=== PATIENT | female | born 1945 | race Caucasian/White ===

== ENCOUNTER 2017-06-12 18:41 | Observation (INO) | payer MEDICARE ==
[~2017-06-12] VITALS: Ht 152.4 cm; Wt 66.2 kg
--- NOTE | ~2017-06-12 | EKG ---
PATIENT: ANKUSH ARTIS UNIT #: [id number] Ventricular Rate: 51 BPM Atrial Rate: 68 BPM QRS Duration: 74 ms Q-T Interval: 488 ms QTC Calculation(Bezet): 449 ms Calculated R [place]: 11 degrees Calculated T [place]: 97 degrees Diagnosis Line: Sinus rhythm with 2nd degree A-V block (Mobitz I) Diagnosis Line: Septal infarct , age undetermined Diagnosis Line: Abnormal ECG Diagnosis Line: When compared with ECG of 12-JUN-2017 19:08, Diagnosis Line: (unconfirmed) Diagnosis Line: Septal infarct is now Present Diagnosis Line: Confirmed by FIORELLA GRAY MD ([id number]) on Diagnosis Line: 06/13/2017 10:58:57 AM INTERPRETING MD: ISAAC DORMAN
--- NOTE | ~2017-06-12 | HP ---
Unit #: [id number] #: [id number] Patient: ANKUSH ARTIS [id number] [address] [place], [place] [address] [id number] I MR#: [id number] NAME: ANKUSH ARTIS. ROOM: 551 Age: 72 Sex: F Admission Date: 06/12/2017 : 1945 Attending Physician: Therese Crocker M.D. Primary Care Physician: Sussy Funes M.D. HISTORY AND PHYSICAL CHIEF COMPLAINT Symptomatic type one second degree AV block. HISTORY OF PRESENT ILLNESS This pleasant, 72-year-old female with COPD, hypertension, was transferred from [facility] emergency department for near syncope and Wenckebach. The patient states that she was in her usual state of health until 5 p.m. last evening. She was walking in her kitchen, felt extremely lightheaded, had to be helped to the ground, became diaphoretic and experienced nausea and vomiting. No chest pain or shortness of breath with the above. When she went to [facility] emergency department, initially, she was thought to have vertigo. However, the patient tells me currently that she did not experience spinning, that she felt definitely lightheaded as if she was going to faint. In the course of her workup, she was found to have a Wenckebach block. Potassium was low at 3.2. She was treated with a dose of Antivert, Zofran, 10 mg of IV hydralazine for an elevated blood pressure, given 40 mEq of potassium. Currently, she is feeling improved. On her monitor, she continues to be in a type one second degree AV block rhythm. She states that she saw Dr. Santo in the past for irregular heart rhythm but no other details are available. The patient does note episodes of chest discomfort which can occur at rest or with exertion. First set of cardiac enzymes are negative. PAST MEDICAL HISTORY 1. COPD. 2. Irregular heart rhythm in the past seen by Dr. Santo. 3. Hypertension. 4. Hyperlipidemia. 5. Cholecystectomy. 6. One functioning kidney. 7. Total abdominal hysterectomy. 8. Exploratory laparotomy. SOCIAL HISTORY The patient lives with her and dog, Sugar. She smokes one-half pack per day of tobacco. She does not want to stop smoking. She drinks an occasional glass of wine. FAMILY HISTORY Positive for CAD in her father in his sixties. ALLERGIES Aspirin and Stadol. Unit #: [id number] #: [id number] Patient: ANKUSH ARTIS HOME MEDICATIONS 1. Possibly Premarin. 2. ProAir as needed. 3. Norvasc 5 mg daily. 4. PRN Fioricet. 5. Lozol. 6. HCTZ. REVIEW OF SYSTEMS Notable for lightheadedness, nausea, diaphoresis, irregular heart rhythm, COPD, tobacco use, hypertension, hyperlipidemia, above-mentioned surgeries. Occasional chest pain. All other systems were reviewed and are negative. PHYSICAL EXAMINATION GENERAL APPEARANCE: A pleasant 72-year-old female who currently is in no acute distress. VITAL SIGNS: Her heart rate is 48. Temperature 97.7. Respirations 20. Blood pressure 154/41. Blood pressure was as high as 190/107 at one point. HEENT: Eyes: PERRLA. Extraocular muscles are intact. Pharynx is benign. NECK: Supple without adenopathy or thyromegaly. She has bilateral carotid bruits on exam. CHEST: Diminished breath sounds. CARDIAC: Normal S1, S2, occasionally irregular with a very soft systolic murmur best heard on the left sternal border. ABDOMEN: Bowel sounds are present. No hepatosplenomegaly, tenderness or masses. EXTREMITIES: Without clubbing, cyanosis or edema. Pedal pulses are present. NEUROLOGIC: The patient is awake, alert, oriented. Cranial nerves are intact. Equal strength throughout. DIAGNOSTIC STUDIES LABORATORY: Hematocrit 40.4, WBC count 11.8, normal platelet count. Cardiac markers are negative. SMA-7: Potassium 3.2. IMAGING: Head CT: No acute disease. CARDIOVASCULAR: EKG: Mobitz I second degree AV block with a narrow complex rhythm, heart rate about 50. Q noted in V1 and V2. T wave inversion in V3. ASSESSMENT 1. Symptomatic type one second degree AV block with near syncope. 2. Hypokalemia. 3. Essential hypertension. 4. COPD with ongoing tobacco use. The patient does not want to stop smoking. 5. Bilateral carotid bruits. 6. One functioning kidney. PLAN 1. Potassium was replaced. I will ask for a magnesium level. 2. Repeat cardiac enzymes and EKG this morning. We will request an echo. Consult Cardiology. The patient did see Dr. Santo in the past for irregular heart rhythm. 3. Discontinue HCTZ as patient takes Lozol. Unit #: [id number] #: [id number] Patient: ANKUSH ARTIS 4. SCDs for DVT prophylaxis. 5. Carotid Dopplers. Dictated by Ninoska Ladd M.D. AML/bd TD: 06/13/2017 08:07 JOB #: [id number] HISTORY AND PHYSICAL Page 1 of 1 X Ninoska Ladd MD X HISTORY AND PHYSICAL
--- NOTE | ~2017-06-12 | EKG ---
PATIENT: ANKUSH ARTIS UNIT #: [id number] Ventricular Rate: 53 BPM Atrial Rate: 69 BPM QRS Duration: 88 ms Q-T Interval: 498 ms QTC Calculation(Bezet): 467 ms Calculated R [place]: 12 degrees Calculated T [place]: 73 degrees Diagnosis Line: Sinus rhythm with 2nd degree A-V block (Mobitz I) Diagnosis Line: T wave abnormality, consider anterior ischemia Diagnosis Line: Abnormal ECG Diagnosis Line: When compared with ECG of 05-APR-2015 12:49, Diagnosis Line: T wave inversion now evident in Anterior leads Diagnosis Line: Confirmed by FIORELLA GRAY MD ([id number]) on Diagnosis Line: 06/13/2017 10:58:51 AM INTERPRETING MD: ISAAC DORMAN
--- NOTE | ~2017-06-12 | US37 ---
[facility] A Service of [facility] & [facility] RADIOLOGY TEXT RESULTS PATIENT: ANKUSH ARTIS LOCATION: [place] [address]- : 43 UNIT #: [id number] AGE: [address]: Therese Crocker MD SEX: F ORDER DR: [id number] [facility] [address] [place], [place] [address] [id number] I MR#: [id number] Acc #: [id number] NAME: ANKUSH ARTIS. : 1945 SEX: F STUDY DATE/TIME: 06/13/2017 8:33 UNIT: [facility] ROOM: [facility] STUDY DESCRIPTION: US Carotid W/Doppler Bilateral Attending Physician: Therese Crocker M.D. Ordering Physician: Ninoska Ladd M.D. Primary Care Physician: Sussy Funes M.D. MEDICAL IMAGING REPORT This report is preliminary unless electronic signature is present EXAM Carotid Doppler bilateral, 06/13/2017 HISTORY Bilateral carotid bruits on physical examination 06/12/2017. Sudden onset of dizziness and nausea on 06/12/2017 with blurred vision. Loss of balance and coordination. Evaluate for carotid stenosis. FINDINGS Mao-scale carotid artery images were obtained as well as Doppler waveform spectral analysis and color flow Doppler imaging. The examination was interpreted according to NASCET criteria. There is no hemodynamically significant stenosis in either internal carotid artery. Peak systolic velocity in the right and left internal carotid arteries was 104 cm/sec and 98 cm/sec respectively. Antegrade blood flow was seen in both vertebral arteries. There is elevated peak systolic velocity in the right external carotid artery suggesting a degree of stenosis. Mao-scale images show minimal plaque bilaterally. IMPRESSION 1. No hemodynamically significant stenosis in either internal carotid artery. 2. Antegrade blood flow in both vertebral arteries. 3. Elevated peak systolic velocity in the right external carotid artery suggesting a degree of stenosis. Dictated by... Clay Barahona M.D. THIS IS AN ELECTRONICALLY VERIFIED REPORT Clay Barahona M.D. at 06/13/2017 5:06 PM KRT/jw [facility]. [facility] A Service of [facility] & [facility] RADIOLOGY TEXT RESULTS PATIENT: ANKUSH ARTIS LOCATION: [facility] 551-01 : 43 UNIT #: [id number] AGE: [address]: Therese Crocker MD SEX: F ORDER DR: TD: 06/13/2017 12:14 JOB #: [id number] MEDICAL IMAGING REPORT Page 1 of 1 COPY
--- NOTE | ~2017-06-12 | CT71 ---
[facility] A Service of [facility] & [facility] RADIOLOGY TEXT RESULTS PATIENT: ANKUSH ARTIS LOCATION: [facility] 551- : 43 UNIT #: [id number] AGE: [address]: Therese Crocker MD SEX: F ORDER DR: [id number] [place] [id number] I MR#: [id number] Acc #: [id number] NAME: ANKUSH ARTIS. : 1945 SEX: F STUDY DATE/TIME: 06/12/2017 20:30 UNIT: SEDOF ROOM: [id number] STUDY DESCRIPTION: CT Head Wo Contrast Attending Physician: Ninoska Ladd M.D. Ordering Physician: Bjorn Mckeon M.D. Primary Care Physician: Sussy Funes M.D. MEDICAL IMAGING REPORT This report is preliminary unless electronic signature is present. EXAM Head CT without HISTORY Sudden onset of dizziness and nausea 1 hour prior to arrival. The patient has a headache and fell to the floor during the episode of dizziness. History of hypertension and smoking. No history of cancer. This CT exam was performed with one or more of the following radiation dose reduction techniques: automatic exposure control, adjustment of mA and/or kV according to patient size, and iterative reconstruction. COMMENT Routine noncontrast head CT is reviewed. There is no displaced calvarial fracture. The patient has a small amount of fluid or inflammatory change of the left side mastoid tip. The visualized paranasal sinuses are essentially clear and there is moderate vascular calcification at the base of the brain. There is no evidence for acute intracranial hemorrhage or extraaxial fluid collection. The ventricles are normal in size and configuration for age group. The basilar cisterns are patent. The velazquez-white junction is relatively well maintained. There is no intracranial mass effect. If there is clinical concern for acute CVA followup imaging is suggested, preferably with an MRI if the patient is a candidate. IMPRESSION No acute intracranial abnormality is suspected but if there is clinical concern for acute CVA followup imaging is recommended, preferably with MRI if the patient is a candidate. [facility] A Service of [facility] & [facility] RADIOLOGY TEXT RESULTS PATIENT: ANKUSH ARTIS LOCATION: [place] [address] : 43 UNIT #: [id number] AGE: [address]: Therese Crocker MD SEX: F ORDER DR: Dictated by... Cindy Dumont M.D. THIS IS AN ELECTRONICALLY VERIFIED REPORT Cindy Dumont M.D. at 06/13/2017 10:37 AM ARIADNA/abdifatah TD: 06/13/2017 02:52 JOB #: [id number] MEDICAL IMAGING REPORT Page 1 of 1
--- NOTE | ~2017-06-12 | EKG ---
PATIENT: ANKUSH ARTIS UNIT #: [id number] Ventricular Rate: 66 BPM Atrial Rate: 66 BPM P-R Interval: 352 ms QRS Duration: 80 ms Q-T Interval: 482 ms QTC Calculation(Bezet): 505 ms P Neal: 67 degrees Calculated R Neal: 30 degrees Calculated T Neal: 89 degrees Diagnosis Line: Sinus rhythm with 1st degree A-V block Diagnosis Line: Inferior infarct , age undetermined Diagnosis Line: Abnormal ECG Diagnosis Line: When compared with ECG of 05-APR-2015 12:49, Diagnosis Line: Sinus rhythm is no longer with 2nd degree A-V Diagnosis Line: block (Mobitz I) Diagnosis Line: Inferior infarct is now Present Diagnosis Line: Nonspecific T wave abnormality, worse in Diagnosis Line: Anterolateral leads Diagnosis Line: QT has lengthened Diagnosis Line: Confirmed by FIORELLA GRAY MD ([id number]) on Diagnosis Line: 06/13/2017 9:06:13 AM INTERPRETING MD: ISAAC DORMAN
--- NOTE | ~2017-06-12 | DS ---
Unit #: [id number] #: [id number] Patient: ANKUSH ARTIS [id number] [address] [place], [place] [address] [id number] I MR#: [id number] NAME: ANKUSH ARTIS. ROOM: 551 Age: 72 Sex: F Admission Date: 06/13/2017 : 1945 Discharge Date: 06/14/2017 Attending Physician: Therese Crocker M.D. Primary Care Physician: Sussy Funes M.D. DISCHARGE SUMMARY PRINCIPAL DIAGNOSES 1. Syncope secondary to #2. 2. Second degree Mobitz type 1 and type 2. 3. Hypokalemia. 4. Chronic obstructive pulmonary disease. 5. Hypertension. 6. Coronary artery disease non-obstructive, per heart cath in 2011. 7. Hyperlipidemia. 8. Diabetes mellitus, type 2, controlled. 9. Tobaccoism. CONSULTANTS Dr. Reina - cardiology PROCEDURES 1. Two dimensional echocardiogram with ejection fraction of 50% to 55%, normal left ventricular wall thickness, grade I diastolic dysfunction noted, [id number] tricuspid regurgitation. 2. CT of the head without contrast on June 12, 2017 with no acute findings. 3. Carotid ultrasound on June 13, 2017, with no hemodynamically significant stenosis. CLINICAL HISTORY AND HOSOPITAL COURSE Ms. Artis is a very nice 72-year-old female who presents to the emergency department with complaints of lightheadedness. Please refer to history and physical for further details. In the emergency department, workup including CT scan of the head was unremarkable. However, the patient was found to be in type 2 AV block and was subsequently admitted for further evaluation. Cardiology was consulted and the patient was monitored. Initially a plan was for the patient to undergo stress test; however, the evening prior to that the patient developed bradycardia and subsequently went into Mobitz both type 1 and type 2. The patient was reevaluated by cardiology who felt this time she requires pacemaker placement and she is being transferred to [facility] in anticipation of pacemaker placement. She will be followed by Dr. Santo at [facility]. DISCHARGE CONDITION Stable but requires monitoring. Unit #: [id number] #: [id number] Patient: CHANDRA,ANKUSH L DISCHARGE STATUS Discharged to [facility]. DISCHARGE MEDICATIONS 1. Per HFA two puffs every four hours p.r.n. for shortness of breath 2. Tylenol 650 mg p.o. q.4h p.r.n. for pain 3. Zofran 4 mg IV q.6h p.r.n. for nausea and vomiting 4. Ativan 0.5 mg at bedtime p.r.n. for insomnia 5. Dulera 100/5 mcg two puffs b.i.d. 6. Norvasc 5 mg daily 7. Indapamide 2.5 mg daily 8. Lipitor 40 mg at bedtime 9. Flexeril 5 mg p.o. t.i.d. p.r.n. for muscle spasms DISCHARGE INSTRUCTIONS The patient is currently following a heart healthy diabetic diet, she can increase her activity as tolerated under the care of cardiology at [facility]. Again anticipation of pacemaker placement in the near future. Dictated by... Therese Crocker M.D. JAKOB/brendan TD: 06/14/2017 13:47 JOB #: [id number] DISCHARGE SUMMARY Page 1 of 1 X Therese Crocker MD X DISCHARGE SUMMARY
--- NOTE | ~2017-06-12 | EKG ---
PATIENT: ANKUSH ARTIS UNIT #: [id number] Ventricular Rate: 60 BPM Atrial Rate: 68 BPM QRS Duration: 86 ms Q-T Interval: 458 ms QTC Calculation(Bezet): 458 ms P [place]: 63 degrees Calculated R [place]: 27 degrees Calculated T [place]: 82 degrees Diagnosis Line: Sinus rhythm with 2nd degree A-V block (Mobitz I) Diagnosis Line: Abnormal ECG Diagnosis Line: When compared with ECG of 13-JUN-2017 05:31, Diagnosis Line: Sinus rhythm is now with 2nd degree A-V block Diagnosis Line: (Mobitz I) Diagnosis Line: Criteria for Inferior infarct are no longer Diagnosis Line: Present Diagnosis Line: Nonspecific T wave abnormality, improved in Diagnosis Line: Anterolateral leads Diagnosis Line: Confirmed by SHEREE RAYGOZA MD ([id number]) on Diagnosis Line: 06/15/2017 5:40:28 PM INTERPRETING MD: JARET DORMAN
--- NOTE | ~2017-06-12 | CO ---
Unit #: [id number] #: [id number] Patient: ANKUSH ARTIS [id number] [place] [id number] [place], [place] [address] [id number] I MR#: [id number] NAME: ANKSUH ARTIS ROOM: 551 Age: 72 Sex: F Admission Date: 06/13/2017 : 1945 Attending Physician: Therese Crocker M.D. Primary Care Physician: Sussy Funes M.D. Consultation Date: 06/13/2017 CONSULTATION REPORT HISTORY OF PRESENT ILLNESS This is a 72-year-old white female who has been seen by Dr. Santo in the past and had a stress test in 2010, which she was told was normal. In 2011 she had a cardiac catheterization done at [facility] where she was found to have 30% stenosis to the left anterior descending artery. There was significant disease in the distal portion of the vessel that improved up to 30% after intracoronary nitroglycerin. She had nonobstructive disease to the circumflex and right coronary artery. She has risk factors for ischemic heart disease including hypertension, hyperlipidemia, diabetes, nicotine abuse, and family history of premature coronary artery disease. The patient comes to the emergency room with a near syncopal episode. She was seen in her usual state of health yesterday. She was cooking dinner and sat down at the kitchen table and had a sudden onset of dizziness. She felt short of breath and nauseated. She went to take a few steps in the kitchen and felt as if she could pass out. Her assisted her to the floor. She had blurred vision, loss of bowel and bladder, significant nausea and diaphoresis. She did not completely lose consciousness. She had a similar episode but not as severe about a month ago when she was lying in bed, when she had a sudden onset of dizziness. The symptoms resolved after a few minutes of lying still. She has no reported chest pain, unaware of palpitations. No headache or difficulty with swallowing. She does report occasional ankle edema but no paroxysmal nocturnal dyspnea or orthopnea. PAST MEDICAL HISTORY 1. Cardiac catheterization 05/14/2012 shows an ejection fraction of 70%. LAD had 30% stenosis after intracoronary nitroglycerin. Circumflex artery 30%. Right coronary artery 30%. This was done at [facility] per Dr. Santo. 2. Stress test 03/2011 told normal. No details available. 3. Hypertension. 4. Hyperlipidemia. 5. Diabetes type 2. 6. COPD. 7. Atrophic kidney. 8. Active smoker. PAST SURGICAL HISTORY 1. Cholecystectomy. 2. Hysterectomy. 3. Exploratory laparotomy. Unit #: [id number] #: [id number] Patient: ANKUSH ARTIS SOCIAL HISTORY The patient is and retired. She smokes 1/2 pack of cigarettes since age 14. She denies illicit drug and alcohol use. FAMILY HISTORY Father from a myocardial infarction in his late 50s or early 60s. ALLERGIES Stadol and aspirin. Aspirin causes nausea and vomiting. HOME MEDICATIONS 1. ProAir HFA two puffs q.4 hours p.r.n. 2. Robaxin 500 mg q.i.d. p.r.n. 3. Lidocaine/menthol one patch topically twice a day. 4. Amlodipine 5 mg daily. 5. Lipitor 40 mg daily. 6. Indapamide 2.5 mg daily. 7. Hydrochlorothiazide 25 mg daily. 8. Butalbital, acetaminophen, and caffeine 50/25/40 mg 1 tablet daily p.r.n. REVIEW OF SYSTEMS CONSTITUTIONAL: Negative for fever or chills. Has no weight gain or weight loss. HEENT: Positive for visual disturbances. No difficulty with swallowing. Has dizziness described in the HPI. CARDIOVASCULAR: Has no symptoms of angina. Unaware of palpitations. Denies paroxysmal nocturnal dyspnea or orthopnea. Reports near syncope. RESPIRATORY: Has dyspnea that accompanied her syncopal episode. No cough or hemoptysis. GASTROINTESTINAL: Positive for nausea but no vomiting or diarrhea. No constipation or melena. EXTREMITIES: Has occasional ankle edema. PHYSICAL EXAMINATION VITAL SIGNS: Blood pressure 147/54, heart rate 65, temperature 97.8, and BMI 28. GENERAL: This is a well developed 72-year-old, white male who is in no acute respiratory distress. NEUROLOGIC: She is awake, alert, oriented. There are no focal weaknesses. NECK: Trachea is midline. No thyromegaly or lymphadenopathy. With a faint right carotid bruit. HEART: S1 and S2. Heart sounds are normal. No murmurs or rubs or clicks. Regular rate and rhythm with occasional ectopic beat. ABDOMEN: Soft and nontender with bowel sounds present. No organomegaly. EXTREMITIES: Pedal pulses are palpable without leg edema. SKIN: Warm and dry. DIAGNOSIS STUDIES LABORATORY STUDIES: Hemoglobin 12.7, hematocrit 37.7, platelet count 222, white count 10.3. Sodium 139, potassium 3.8, BUN 19, creatinine 0.9, glucose 112, CK 36. Troponin less than 0.03 and less than 0.5. IMAGING STUDIES: CT of the head shows no acute intracranial abnormality. CARDIOVASCULAR STUDIES: Electrocardiogram shows normal sinus rhythm with a first degree AV block and second degree Mobitz type 1. Unit #: [id number] #: [id number] Patient: ANKUSH ARTIS IMPRESSION 1. Near syncope, most likely secondary to arrhythmias. 2. Mobitz type 1, secondary degree AV block. 3. Coronary artery disease, nonobstructive per cardiac catheterization 2011. 4. Hypertension. 5. Hyperlipidemia. 6. Diabetes type 2. 7. COPD. 8. Preserved left ventricular systolic function, ejection fraction of 70% per cardiac catheterization in 2011. 9. Nicotine abuse. PLAN 1. Cardiology was consulted for near syncope. The patient's near syncopal episode is most likely secondary to arrhythmias. EKG shows a Mobitz type 1 Wenckebach rhythm currently. She is without symptoms. It is possible that the patient's heart rate deteriorated causing significant bradyarrhythmias. 2. Await echocardiogram for left ventricular ejection fraction and for valvular heart disease. 3. Thyroid function and lipid levels will be checked. 4. Electrolytes are within normal limits. 5. The patient may require at minimum an implanted loop recorder to evaluate for arrhythmias. She may ultimately need permanent pacemaker. 6. She is not on any rate lowering medications. 7. Further recommendations to follow. Thank you for allowing us to assist with this patient's care. Dictated by... Evangelist BarlowP.R.N. for Karlos Haywood M.D. EFRAIN/tona TD: 06/16/2017 08:06 JOB #: [id number] CC: iVnod Santo M.D. CONSULTATION REPORT Page 1 of 1 X Óscar Preciado APRN CONSULTATION REPORT
[~2017-06-12 18:41] MED LIST: AMLODIPINE BESYL5 MG PO; BUTALB-ACETAMI1 EACH PO; CYCLOBENZAPRINE5 MG PO; DULERA 100 MCG/13 GM IH; HYDROCHLOROTHIA25 MG PO; INDAPAMIDE2.5 M1 PO; LIDODEXTRAPINE1 EACH TP; LIPITOR40 MG PO; MEDROL4 MG/DOSE-; PREMARIN0.625 MG PO; PROAIR HFA8.5 GM INH; ROBAXIN500 MG PO; ZOLPIDEM TARTRAT5 MG PO
[2017-06-12 19:41] LABS: BASOPHIL# 0.1 X10e3 (0-0.3); BASOPHIL% 0.6 % (0-2.5); EOSINOPHIL# 0.1 X10e3 (0-0.7); EOSINOPHIL% 0.7 % (0.0-7.0); HEMATOCRIT 40.4 % (35.0-45.0); HEMOGLOBIN 13.8 gm/dL (12.0-16.0); LYMPHOCYTE# 2.5 X10e3 (1.0-3.5); LYMPHOCYTE% 21.3 % (17.0-45.0); MEAN CELL VOLUME 91.1 FL (83-96); MEAN CORPUSCULAR HEMOGLOBIN 31.1 PG (28-34); MEAN CORPUSCULAR HGB CONC 34.1 g/dL (30-36); MEAN PLATELET VOLUME 8.2 FL (6.5-11.5); MONOCYTE# 0.5 X10e3 (0-1.0); MONOCYTE% 4.6 % (3.0-12.0); NEUTROPHIL# 8.6 X10e3 (1.5-7.1); NEUTROPHIL% 72.8 % (40-75); PLATELET COUNT 232 X10e3 (140-420); RED BLOOD COUNT 4.44 X10e (3.90-5.30); RED CELL DISTRIBUTION WIDTH 14.2 % (11.0-15.5); WHITE BLOOD COUNT 11.8 X10e3 (4.0-10.5)
[2017-06-12 19:44] LABS: DIFF IND NO
[2017-06-12 19:58] LABS: CALCIUM SERUM 9.4 mg/dL (8.4-10.2); CREATININE SERUM 0.8 mg/dL (0.6-1.4); GLOM FILT RATE Estimated 72.7 mL/min (>60); POTASSIUM 3.2 mmol/L (3.5-5.1)
[2017-06-12 19:58] LABS: POC - CKMB 1.2 ng/mL (0.0-7.9); POC - TROPONIN <0.05 ng/mL (<=0.05)
[2017-06-13 07:45] LABS: BASOPHIL# 0.1 X10e3 (0-0.3); BASOPHIL% 1.4 % (0-2.5); EOSINOPHIL# 0.1 X10e3 (0-0.7); EOSINOPHIL% 1.4 % (0.0-7.0); HEMATOCRIT 37.7 % (35.0-45.0); HEMOGLOBIN 12.7 gm/dL (12.0-16.0); LYMPHOCYTE# 3.9 X10e3 (1.0-3.5); LYMPHOCYTE% 38.1 % (17.0-45.0); MEAN CELL VOLUME 92.2 FL (83-96); MEAN CORPUSCULAR HGB CONC 33.7 g/dL (30-36); MEAN PLATELET VOLUME 8.6 FL (6.5-11.5); MONOCYTE# 0.7 X10e3 (0-1.0); MONOCYTE% 6.6 % (3.0-12.0); NEUTROPHIL# 5.4 X10e3 (1.5-7.1); NEUTROPHIL% 52.5 % (40-75); PLATELET COUNT 222 X10e3 (140-420); RED BLOOD COUNT 4.09 X10e (3.90-5.30); WHITE BLOOD COUNT 10.3 X10e3 (4.0-10.5)
[2017-06-13 07:51] LABS: DIFF IND NO
[2017-06-13 08:08] LABS: PARTIAL THROMBOPLASTIN TIME 25.3 SECONDS (23.5-31.3)
[2017-06-13 08:48] LABS: BUN/CREATININE RATIO 21.11; CREATININE SERUM 0.9 mg/dL (0.6-1.4); MAGNESIUM 1.6 mg/dL (1.6-3.0); POTASSIUM 3.8 mmol/L (3.5-5.1)
[2017-06-13 12:34] LABS: CHOLESTEROL 254 mg/dL (0-200); HDL CHOLESTEROL 43 mg/dL (35-95); LDL CHOLESTEROL 134 mg/dL ([, -130]); LDL/HDL RATIO 3 RATIO (0-4); TRIGLYCERIDES 384 mg/dL (10-160)
[2017-06-14 05:32] LABS: HEMATOCRIT 37.1 % (35.0-45.0); HEMOGLOBIN 12.3 gm/dL (12.0-16.0); MEAN CELL VOLUME 92.4 FL (83-96); MEAN CORPUSCULAR HEMOGLOBIN 30.7 PG (28-34); MEAN CORPUSCULAR HGB CONC 33.3 g/dL (30-36); MEAN PLATELET VOLUME 8.4 FL (6.5-11.5); RED BLOOD COUNT 4.02 X10e (3.90-5.30); RED CELL DISTRIBUTION WIDTH 13.8 % (11.0-15.5); WHITE BLOOD COUNT 8.6 X10e3 (4.0-10.5)
[2017-06-14 05:52] LABS: CALCIUM SERUM 8.5 mg/dL (8.4-10.2); CREATININE SERUM 0.8 mg/dL (0.6-1.4); GLOM FILT RATE Estimated 72.7 mL/min (>60); POTASSIUM 3.1 mmol/L (3.5-5.1)
== END 2017-06-14 19:40 ==
LOC: SED 18:41 → SEDOF 23:01 → SED 23:01 → SEDOF 23:03 → SED 23:03 → SEDOF 06-13 01:31 → C5B 06-13 01:31 → SED 06-13 03:00 → SEDOF 06-13 03:00 → C5B 06-13 07:53
PROVIDERS: Emergency Medicine; Internal Medicine; Internal Medicine Cardiovascular Disease
DX: I44.1 Atrioventricular block, second degree (principal); R55 Syncope and collapse; E87.6 Hypokalemia; J44.9 Chronic obstructive pulmonary disease, unspecified; I25.10 Atherosclerotic heart disease of native coronary artery without angina pectoris; I11.9 Hypertensive heart disease without heart failure; I12.9 Hypertensive chronic kidney disease with stage 1 through stage 4 chronic kidney disease, or unspecified chronic kidney disease; E11.22 Type 2 diabetes mellitus with diabetic chronic kidney disease; N18.9 Chronic kidney disease, unspecified; F17.210 Nicotine dependence, cigarettes, uncomplicated; I08.1 Rheumatic disorders of both mitral and tricuspid valves; I51.9 Heart disease, unspecified; I77.9 Disorder of arteries and arterioles, unspecified; E78.5 Hyperlipidemia, unspecified; Z79.899 Other long term (current) drug therapy; Z82.49 Family history of ischemic heart disease and other diseases of the circulatory system; Z90.49 Acquired absence of other specified parts of digestive tract; Z88.4 Allergy status to anesthetic agent; Z88.5 Allergy status to narcotic agent; Z90.710 Acquired absence of both cervix and uterus
CPT/HCPCS: 36415; 70450; 80048; 80061; 82550; 82553; 82947; 83735; 84443; 84484; 85025; 85027; 85610; 85730; 93005; 93306; 93880; 94640; 94760; 96374; 96375; 99285; G0378; J0360; J1815; J2405